=== PATIENT | male | born 1955 | race Two or more races ===

== ENCOUNTER 2018-03-11 05:55 | Day surgery (SDC) | payer OTHER ==
[~2018-03-11 05:55] MED LIST: AMLODIPINE BESYL5 MG PO; BENAZEPRIL; SYNTHROID150 MCG PO; ZETIA10 MG PO
[2018-03-11] MEDS ORDERED: NEURONTIN300 MG PO (10:33)
[2018-03-11] MEDS ORDERED: PERCOCET 5-3251 EACH PO (10:33)
[2018-03-11] MEDS ORDERED: MIRALAX17 GM PO (10:34)
== END 2018-03-11 12:00 | disposition home or self-care (01) ==
LOC: CIR.AMB 05:55
DX: K40.90 Unilateral inguinal hernia, without obstruction or gangrene, not specified as recurrent (principal)

== ENCOUNTER 2019-04-01 12:40 | Outpatient (CLI) | payer OTHER ==
[~2019-04-01 12:40] MED LIST changes: +MIRALAX17 GM PO; +NEURONTIN300 MG PO; +PERCOCET 5-3251 EACH PO
== END 2019-04-01 12:47 | disposition home or self-care (01) ==
LOC: SONOGRAMA 12:40
DX: N43.2 Other hydrocele (principal); I86.1 Scrotal varices

== ENCOUNTER 2019-05-05 05:55 | Day surgery (SDC) | payer OTHER | END 2019-05-05 13:47 | disposition home or self-care (01) | LOC: CIR.AMB 05:55 | DX: N43.2 Other hydrocele (principal) ==

== ENCOUNTER 2024-12-02 08:38 | Emergency (ER) | payer OTHER ==
[~2024-12-02] VITALS: Ht 170.2 cm; Wt 83.9 kg
[2024-12-02] MEDS ORDERED: 0.9 % SODIUM CHLORIDE 1,000 ML IV SCH (09:15)
[2024-12-02] MEDS ORDERED: BARIUM SULFATE 450 ML ORAL.SUSP PO ONE (09:19)
[2024-12-02 09:44] LABS: BASO % 0.3 % (0.1-1.2); EOS # 0.01 (0.04-0.54); EOS % 0.1 % (0.7-7.0); HEMATOCRIT 47.3 % (40.1-51.0); HEMOGLOBIN 16.3 g/dL (13.7-17.5); LYMPH # 1.08 (1.18-3.74); LYMPH % 7.8 % (19.3-53.1); MEAN CORPUSCULAR HEMOGLOBIN 30.3 pg (25.6-32.2); MONO # 1.09 (0.24-0.82); MONO % 7.9 % (4.7-12.5); NEUT # 11.52 (1.56-6.13); NEUT % 83.5 % (34.0-71.1); PLATELET COUNT 246 K/uL (163-369); RED BLOOD COUNT 5.38 M/uL (4.63-6.08); RED CELL DISTRIBUTION WIDTH 13.1 % (11.6-14.4)
[2024-12-02 10:04] LABS: CALCIUM 9.3 mg/dL (8.5-10.1); CREATININE SERUM 1.26 mg/dL (0.70-1.30); GFR 56.42; POTASSIUM 4.98 mEq/L (3.5-5.1)
[2024-12-02 10:44] LABS: PH,URINE 5.5 (5.0-8.0); URINE APPEARANCE Clear; URINE BILIRRUBIN Negative (NEGATIVE); URINE BLOOD Large; URINE COLOR Yellow; URINE GLUCOSE Negative (NEGATIVE); URINE KETONE 15 (NEGATIVE); URINE LEUKOCYTE Trace; URINE NITRATE Negative; URINE PROTEIN Negative (NEGATIVE); URINE UROBILINOGEN 0.2 E.U./dl
[2024-12-02 10:45] LABS: URINE BACTERIA 14.6 uL (0.0-1933); URINE EPITHELIAL CELLS 4.9 uL (0.0-38.8); URINE RBC 85.2 uL (0.0-20.8); URINE WBC 25.7 uL (0.0-23.2)
[2024-12-02] MEDS ORDERED: TAMSULOSIN HCL 0.4 MG CAP PO ONE ×2 (13:24→13:30)
== END 2024-12-02 13:31 | disposition home or self-care (01) ==
LOC: ER 08:51
PROVIDERS: Emergency Medicine
DX: N23 Unspecified renal colic (principal); I10 Essential (primary) hypertension
CPT/HCPCS: 36415; 74177; 96365; 96366; 99284; J7030; Q9965